=== PATIENT | female | born 1960 | race Caucasian/White ===

== ENCOUNTER 2022-10-16 07:20 | Day surgery (SDC) | payer BC ==
[~2022-10-16] VITALS: Ht 165.1 cm; Wt 98.0 kg
[~2022-10-16 07:20] MED LIST: ALLEGRA-D 12 H1 EACH PO; ALLEGRA-D 24 H1 EACH PO; ASTEPRO AL205.5 MCG/ INH; BREO ELLIPTA 21 EACH INH; BUDESONIDE0.5 MG/2 M INH; CALCIUM600 MG PO; CALTRATE 600+D1 EAC1 PO; FISH OIL 1,0001 EAC6 PO; FLAXSEED OIL1000 M1 PO; HYDROCHLOROTHIA25 MG PO; MAGNESIUM OXID400 MG PO; MAGNESIUM400 MG PO; MUCINEX D ER 11 EACH PO; OMEGA 3 1,0001 EACH PO; ONE-A-DAY WOME1 EAC1 PO; PAXIL20 MG PO; POTASSIUM99 M3 PO; PRILOSEC OTC20 MG PO; RESVERATROL250 MG PO; SUDOGEST30 MG PO; TOPROL XL25 MG PO; VENTOLIN HFA18 GM INH; VITAMIN C500 M1 PO; VITAMIN C500 M5 PO; VITAMIN D310 MC1 PO; VITAMIN E100 UNI2 PO; ZINC50 MG PO
--- NOTE | 2022-10-17 05:59 | OR ---
[facility] [address], [place] [address] Signed DATE OF OPERATION: 10/16/2022 SURGEON: Gisela Escamilla MD PREOPERATIVE DIAGNOSIS: Mother with colonic polyps in her 70s. POSTOPERATIVE DIAGNOSIS: Minimal sigmoid diverticulosis. PROCEDURE: Colonoscopy without biopsy. ESTIMATED BLOOD LOSS: None. INDICATIONS: Roxie is a 62-year-old female, who has been coming every 10 years for a colonoscopy. I helped her back in 2012 at the age of 52. This was unremarkable. She did well with Versed and fentanyl. We asked her to follow up in 10 years. She tells me on this occasion that her mother had developed colonic polyps in her 70s. Her mother lives in [place]. She has been back several times to have more polyps removed. Her mother is still alive at age 80. She also reminded me that I helped her recently with his colonoscopy. She has no lower GI complaints. In the office, I had given her a pamphlet on colonoscopy. She recalls the test well. There is risk including, but not limited to gas bloating, crampy abdominal pain, bleeding, perforation requiring surgery, and missed diagnosis. We also reviewed the written instructions for the bowel prep line by line. She also recalls the need for IV conscious sedation. Her gently takes her home. She had expressed understanding and wished to proceed. PROCEDURE NOTE: Roxie was taken into our endoscopy suite and placed in the left lateral decubitus position. She was given a total of 8 mg of Versed and 150 mcg of fentanyl. A digital rectal exam was performed and this was unremarkable. There were no external hemorrhoids. She has good sphincter tone. There were no masses noted. The adult colonoscope was introduced and advanced all around into the cecum under direct visualization of the camera without difficulty. It took a little extra sedation and some abdominal compression in order to get the scope directly into the cecum itself. As always, her prep was quite excellent. We could easily see the appendiceal orifice and the ileocecal valve. The scope was then slowly withdrawn. We saw just two or three Electronically Signed By: GISELA ESCAMILLA MD 10/17/22 0559 PATIENT NAME: ROXIE MONTES OPERATIVE REPORT DATE OF : 64 REPORT #: [id number] PHYSICIAN: GISELA ESCAMILLA MD PCP: LIZ GAN MD REPORT IS CONFIDENTIAL AND NOT TO BE RELEASED WITHOUT AUTHORIZATION [facility] [address], [place] [address] Signed tiny shallow diverticula in the sigmoid colon. They are small in size, few in number and scattered about. Once in the rectum, the scope had been retroflexed and there was no additional pathology noted above the anal canal. After this, the gas was suctioned out and the colonoscope removed. Roxie tolerated the procedure quite well. 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 Gisela Escamilla MD ALB/LEEL /[id number] cc: MD Liz León MD Copies: GISELA ESCAMILLA MD, KEVIN R MD ~ Electronically Signed By: GISELA ESCAMILLA MD 10/17/22 0559 PATIENT NAME: ROXIE MONTES OPERATIVE REPORT DATE OF : 64 REPORT #: [id number] PHYSICIAN: GISELA ESCAMILLA MD PCP: LIZ GAN MD REPORT IS CONFIDENTIAL AND NOT TO BE RELEASED WITHOUT AUTHORIZATION
== END 2022-10-16 10:45 | disposition home or self-care (01) ==
LOC: DS 07:20 → OPS 07:20 → DS 08:15 → OPS 10:45
PROVIDERS: ATTEND Colon & Rectal Surgery
PROC: 0DJD8ZZ Inspection of Lower Intestinal Tract, Via Natural or Artificial Opening Endoscopic (ICD-10-PCS; principal; 2022-10-16 08:15)
DX: Z12.11 Encounter for screening for malignant neoplasm of colon (principal); K57.30 Diverticulosis of large intestine without perforation or abscess without bleeding; Z88.5 Allergy status to narcotic agent; Z88.8 Allergy status to other drugs, medicaments and biological substances; Z83.71 Family history of colonic polyps; F32.A Depression, unspecified; Z85.3 Personal history of malignant neoplasm of breast
CPT/HCPCS: 99153; G0500; J2250; J3010; J7121